=== PATIENT | female | born 1955 | race Caucasian/White ===

== ENCOUNTER 2023-12-22 14:41 | Outpatient (AMB) | payer MEDICARE, SELFPAY ==
--- NOTE | 2023-12-22 14:42 | A.OFFPC_ITS ---
Vital Signs 12/22/23 14:46 12/22/23 15:04 Height 5 ft 2 in Weight 195 lb BMI 35.7 BP 150/78 H 132/68 Blood Pressure Location Lt brachial Rt brachial Position Sitting Sitting Pulse 68 Pulse Source Pulse Oximeter Temp 98.7 F Temp Source Oral Pulse Oximetry (%) 96 Oxygen Delivery Method Room Air Intake Visit Reasons: [facility] Intake Note: patient here for new patient visit. Clearing Supervisor Required: No Patient : No Allergies Penicillins Allergy (Severe, Verified 12/22/23 14:53) Anaphylaxis ibuprofen Allergy (Intermediate, Verified 12/22/23 14:53) Rash Tobacco use date assessed: 12/22/23 Fall risk assessment: No Falls in past year Last assessed Fall Risk: 12/22/23 Dental Screening Dental Screen Date: 12/22/23 Did you have a dental visit in the last 12 months?: No Did you have a dental problem in the last 6 months where you did not have access to dental care?: No Was dental information given to patient?: Patient has dentist HPI HPI Comments History of Present Illness Details This is a 68-year-old female with a past medical history of hypertension, obesity and depression with anxiety presenting to [facility]. She transferred care from Monica Oden NP. She had 1 interim visit at [facility]. Hypertension-Taking amlodipine 5 mg since 2020. She had an episode of hypertensive urgency earlier this year, and she called the paramedics to her house. Her systolic blood pressure was 200. She declined going to the ER. Her blood pressure today is 132/68. She denies side effects on the medication. Nonsmoker. Depression with anxiety-treated with Zoloft 200 mg for approximately 5 years. The medication works well. She has therapist and medication prescriber at the [facility]. She takes Clonazepam 0.5 mg daily as needed. She gets 15 tablets per month. Obesity-she is trying to lose weight. She eats organic and has lots of fiber. She says she needs to exercise more. She would like a referral for a skin exam. She has not noticed any new lesions, but she has a family history of melanoma. Referred to [facility]. [facility] Medical History (Updated 12/22/23 @ 15:42 by BAILEY Orellana) Screening for cardiovascular condition Severe obesity with body mass index (BMI) of 35.0 to 39.9 with serious comorbidity Hypertension, essential Depression with anxiety Surgical History (Updated 12/22/23 @ 15:34 by BAILEY Orellana) Hx of myomectomy H/O toe surgery Family History (Updated 12/22/23 @ 15:35 by BAILEY Orellana) Brother Alcohol abuse Substance abuse FH: mental illness Melanoma Sister Melanoma Social History Housing: House Patient Tobacco Use Status: Never used Tobacco e-Cigarette/Vaping Use: Never Used Second Hand Smoke Exposure: No service: No Current occupational status: retired Cognitive needs: No Hearing needs: No Vision needs: Yes Questionnaire PHQ-9 Over the last 2 weeks, how often have you been bothered by any of the following problems? 1. Little interest or pleasure in doing things: not at all 2. Feeling down, depressed, or hopeless: not at all 3. Trouble falling or staying asleep, or sleeping too much: not at all 4. Feeling tired or having little energy: not at all 5. Poor appetite or overeating: not at all 6. Feeling bad about yourself - or that you are a failure or have let yourself or your family down: not at all 7. Trouble concentrating on things, such as reading the newspaper or watching television: not at all 8. Moving or speaking so slowly that other people could have noticed. Or the opposite - being so fidgety or restless that you have been moving around a lot more than usual: not at all 9. Thoughts that you would be better off or of hurting yourself in some way: not at all Total score: 0 Depression Screening Interpretation: Negative Depression Screening Done: Yes 18210 - PHQ-9 Billing: Yes Source: Developed by Drs. Marcellus Michel, Tri Randall, Peter Cortez and colleagues, with an educational castro from [employer]. Thrive Questionnaire Date Thrive assessed: 12/22/23 I am a: Patient What is your living situation today?: I have a steady place to live Within the past 12 months, did the food you bought not last and you didn't have the money to get more?: Never true Within the past 12 months, did you worry whether your food would run out before you got money to buy more?: Never true Do you have trouble paying for medicines?: No Do you have trouble getting transportation to medical appointments?: No Do you have trouble paying your heating and electricity bill?: No Do you have trouble taking care of your child, family member or friend?: No Do you have trouble with day-to-day activities such as bathing, preparing meals, shopping, managing finances, etc.?: No Are you currently unemployed and looking for a job?: No Are you interested in more education?: No Please select the resources that you would like help with: None Currently or been in a relationship where the following occur: no concerns reported THRIVE Score: 0 AUDIT C Alcohol Use Questionnaire (AUDIT-C) 1. How often do you have a drink containing alcohol?: Never 3. How often do you have six or more drinks on one occasion?: Never Total Score: 0 JESSICA-7 AMB Questionnaire JESSICA-7 Date JESSICA - 7 assessed: 12/22/23 Feeling nervous, anxious, or on edge: 1 = Several days Not being able to stop or control worryin = Not at all Worrying too much about different things: 0 = Not at all Trouble relaxin = Not at all Being so restless that it is hard to sit still: 0 = Not at all Becoming easily annoyed or irritable: 0 = Not at all Feeling afraid as if something awful might happen: 0 = Not at all Total JESSICA-7 score (0-4 normal; 5-9 mild; 10-14 moderate; 15-21 severe): 1 Source: Developed by Drs. Marcellus Michel, Tir Randall, Peter Cortez and colleagues, with an educational castro from [employer]. JESSICA-7 Assessment Billing JESSICA-7 Assessment Tool: JESSICA-7 Assessment 10801 Review of Systems Const Details: Constitutional: No unexplained weight loss, fever, chills, fatigue or night sweats. Eyes: No vision changes Respiratory: No shortness of breath Cardiovascular: No chest pain Neurologic: No headache, dizziness, syncope Psychiatric: No SI/HI. Physical exam (Primary Care) Vital Signs: Last Vital Signs Temp 98.7 F 12/22/23 14:46 Pulse 68 12/22/23 14:46 BP 132/68 12/22/23 15:04 Pulse Ox 96 12/22/23 14:46 Oxygen Delivery Method Room Air 12/22/23 14:46 BMI result Body Mass Index 35.7 Tobacco/Smoking Status: Tobacco use Status Tobacco use date assessed 12/22/23 12/22/23 15:01 Patient Tobacco Use Status Never used Tobacco 12/22/23 15:01 e-Cigarette/Vaping Use Never Used 12/22/23 15:01 PHQ-9: PHQ-9 Score PHQ-9: Total score 0 12/22/23 15:48 Depression Screening Interpretation: Negative Thrive Assessment: Date of Thrive Assessment Date Thrive assessed 12/22/23 12/22/23 15:48 Currently or been in a relationship where the following occur: no concerns reported Const Other: Constitutional: Alert, in no distress. Head: Normocephalic. Eyes: Pupils are equal, round and reactive to light.. Neck: Supple, Full range of motion. No lymphadenopathy. No palpable thyroid masses. Respiratory: Clear to auscultation. Cardiovascular: S1 S2 regular. No murmurs. Extremities: Warm and well perfused. No clubbing, cyanosis or edema. Assessment and Plan Assessment & Plan (1) Depression with anxiety: Code(s): F41.8 - Other specified anxiety disorders Plan: Stable. Continue management per psych. She gets her refills through her med prescriber. (2) Hypertension, essential: Code(s): I10 - Essential (primary) hypertension Plan: Controlled. Continue amlodipine 5 mg. Patient says she did not need a refill today. Recommended low-sodium diet, avoidance of caffeine and weight loss. (3) Severe obesity with body mass index (BMI) of 35.0 to 39.9 with serious comorbidity: Code(s): E66.01 - Morbid (severe) obesity due to excess calories Plan: Check TSH, lipid profile and fasting glucose. Discussed lifestyle mo difications. Also reviewed availability of weight loss management program at [facility], power and recovery superintendent referral and medications to promote weight loss. Declines further interventions at this time. Plan Patient defers health maintenance topics today. She will schedule a physical exam. Orders: Orders TSH reflex Free T4 Today E66.01 - Morbid (severe) obesity due to excess calories, E66.9 - Obesity, unspecified, F41.8 - Other specified anxiety disorders, I10 - Essential (primary) hypertension, Z13.6 - Encounter for screening for cardiovascular disorders Comprehensive Met. Panel Today E66.01 - Morbid (severe) obesity due to excess calories, F41.8 - Other specified anxiety disorders, I10 - Essential (primary) hypertension, Z13.6 - Encounter for screening for cardiovascular disorders Lipid Panel Today E66.01 - Morbid (severe) obesity due to excess calories, F41.8 - Other specified anxiety disorders, I10 - Essential (primary) hypertension, Z13.6 - Encounter for screening for cardiovascular disorders Complete Blood Count Man Dif Today E66.01 - Morbid (severe) obesity due to excess calories, F41.8 - Other specified anxiety disorders, I10 - Essential (primary) hypertension, Z13.6 - Encounter for screening for cardiovascular disorders Referrals Dermatology Referral Z12.83 - Encounter for screening for malignant neoplasm of skin Review Patient declined Mammogram: 12/22/23 Declined Pap Smear: 12/22/23 Patient declined Colonoscopy: 12/22/23 Patient declined Colon Cancer Screen Lab: 12/22/23 Coding Level of Care Code New Pt Level 4 (46499) Complex EM visit Add On G2211 Diagnoses Depression with anxiety F41.8 Hypertension, essential I10 Severe obesity with body mass index (BMI) of 35.0 to 39.9 with serious comorbidity E66.01 Additional Codes JESSICA-7 Assessment Billing - JESSICA-7 Assessment Tool: JESSICA-7 Assessment 06517 ([id number])
[2023-12-22 14:46] VITALS: BP 150/78; PULSE 68; TEMP 37.1; O2SAT 96; BMI 35.7
[2023-12-22 15:04] VITALS: BP 132/68
== END 2023-12-22 15:41 | disposition home or self-care (01) ==
PROVIDERS: PCP Physician Assistant Medical; Visit Provider Physician Assistant Medical
DX: I10 Essential (primary) hypertension (principal); F41.8 Other specified anxiety disorders; E66.01 Morbid (severe) obesity due to excess calories; Z68.35 Body mass index [BMI] 35.0-35.9, adult
CPT/HCPCS: 99204; G2211

== ENCOUNTER 2024-06-16 08:32 | Outpatient (AMB) | payer MEDICARE, SELFPAY ==
--- NOTE | 2024-06-16 08:38 | MHC.PC.OV ---
Vital Signs 06/16/24 08:40 06/16/24 09:59 Height 4 ft 2 in 5 ft 2 in Weight 200 lb 4 oz 200 lb 4 oz BMI 56.3 36.6 BP 128/78 Blood Pressure Location Lt brachial Pulse 73 Pulse Source Pulse Oximeter Pulse Oximetry (%) 95 Oxygen Delivery Method Room Air Intake Visit Reasons: medicare wellness visit Intake Note: Medical wellness visit. Needs refill on Amdlopine. Statistical Clerk Advertising Required: No Allergies Penicillins Allergy (Severe, Verified 06/16/24 08:38) Anaphylaxis ibuprofen Allergy (Intermediate, Verified 06/16/24 08:38) Rash Tobacco use date assessed: 06/16/24 Fall risk assessment: 1 Fall in past year Last assessed Fall Risk: 06/16/24 Dental Screening Dental Screen Date: 12/22/23 HPI HPI Comments History of Present Illness Details This is a 68-year-old female with a past medical history of hypertension, obesity and depression with anxiety presenting for follow up. Patient was informed and verbally consented to the use of an ambient scribe for clinic note documentation during this visit. Hypertension-Taking amlodipine 5 mg since 2020.She denies side effects on the medication. Former onsmoker. The patient expresses interest in a coronary artery calcium screening due to a significant family history of cardiac disease, including premature myocardial infarction in two brothers, one of whom was under age 50. Depression with anxiety-treated with Zoloft 200 mg. The medication works well. She has therapist and medication prescriber at the [facility]. She takes Clonazepam 0.5 mg daily as needed. She gets 15 tablets per month. Obesity-she is trying to lose weight. She eats organic and has lots of fiber. She says she needs to exercise more. She would like a referral to a polisher sand in [place] for skin exam. She has an unhealing lesion on her right upper shoulder for 4-5 years. She picks at it. She has a family history of basal cell carcinoma. The patient was mailed a Cologuard test by her insurance, and she will complete it. She declines colonoscopy. She declines flu vaccine and Prevnar 20 today. States she will get the pneumonia vaccine from the pharmacy. She plans to pursue Shingrix vaccine with her pharmacy. She declines COVID-19 vaccination. Declines RSV vaccination. Patient says tetanus vaccine is up-to-date within the past 10 years. She declines referral for mammogram, bone density exam and gynecological exam. We discussed cancer, and she continues to decline. She will have fasting blood work completed. ROS: - Cardiovascular: Denies chest pain, palpitations, episodes of passing out. - Respiratory: Reports no frequent coughing or trouble breathing. - Gastrointestinal: Denies blood in stools, vomiting. - Genitourinary: Denies vaginal bleeding. - Musculoskeletal: Denies recent bone fractures. - Skin: Reports persistent skin lesion - Neurological: Denies frequent nosebleeds, vision changes, dizziness. - Psychological: Denies recent hospital or ER visits for psychiatric concerns; ongoing management with Zoloft and Lorazepam. PE: Constitutional: Alert, in no distress. Head: Normocephalic. Eyes: Pupils are equal, round and reactive to light. Ear, Nose and Throat: Canals clear. TMs normal. Normal nasal mucosa. No nasal discharge. No oral lesions. Neck: Supple, Full range of motion. No lymphadenopathy. No palpable thyroid masses. Respiratory: Clear to auscultation. Cardiovascular: S1 S2 regular. No murmurs. Gastrointestinal: Abdomen soft, non-tender, non-distended. Normal bowel sounds. No palpable masses. Skin: 1/2 cm sore with hemorrhagic crust on right upper back Extremities: Warm and well perfused. No clubbing, cyanosis or edema. 3+ peripheral pulses bilaterally. Psychiatric: Normal mood and affect [facility] Medical History (Updated 06/16/24 @ 10:00 by BAILEY Orellana) Vaccine counseling Neoplasm of skin Family history of early CAD Screening for cardiovascular condition Severe obesity with body mass index (BMI) of 35.0 to 39.9 with serious comorbidity Hypertension, essential Depression with anxiety Surgical History Hx of myomectomy H/O toe surgery Family History Brother Alcohol abuse Substance abuse FH: mental illness Melanoma Sister Melanoma Social History (Updated 06/16/24 @ 08:40 by Mary Jane Carmen CMA) Housing: House Alcohol intake: former Patient Tobacco Use Status: Former Tobacco user Years Smoked: 7 e-Cigarette/Vaping Use: Never Used Second Hand Smoke Exposure: No service: No Current occupational status: retired Cognitive needs: No Hearing needs: No Vision needs: Yes Questionnaire Thrive Questionnaire Date Thrive assessed: 12/22/23 JESSICA-7 AMB Questionnaire JESSICA-7 Date JESSICA - 7 assessed: 12/22/23 Source: Developed by Drs. Marcellus Michel, Tri Randall, Peter Cortez and colleagues, with an educational castro from [employer]. Physical exam (Primary Care) Vital Signs: Last Vital Signs Pulse 73 06/16/24 08:40 BP 128/78 06/16/24 08:40 Pulse Ox 95 06/16/24 08:40 Oxygen Delivery Method Room Air 06/16/24 08:40 BMI result Body Mass Index 56.3 Tobacco/Smoking Status: Tobacco use Status Tobacco use date assessed 06/16/24 06/16/24 08:42 Patient Tobacco Use Status Former Tobacco user 06/16/24 08:42 e-Cigarette/Vaping Use Never Used 06/16/24 08:42 Thrive Assessment: Date of Thrive Assessment Date Thrive assessed 12/22/23 06/16/24 08:42 Office Procedures EKG Details: EKG shows normal sinus rhythm with a ventricular rate of 73 beats per minute [id number], Complete Coding Level of Care Code Est Pt Level 4 (10304) Complex EM visit Add On G2211 Diagnoses Hypertension, essential I10 Neoplasm of skin D49.2 Family history of early CAD Z82.49 Depression with anxiety F41.8 Vaccine counseling Z71.85 CPT Codes EKG - CPT: 95258-[id number], Complete ([id number]) Assessment & Plan Assessment & Plan (1) Hypertension, essential: Code(s): I10 - Essential (primary) hypertension Category: Medical (2) Neoplasm of skin: Code(s): D49.2 - Neoplasm of unspecified behavior of bone, soft tissue, and skin Category: Medical (3) Family history of early CAD: Code(s): Z82.49 - Family history of ischemic heart disease and other diseases of the circulatory system Category: Medical (4) Depression with anxiety: Code(s): F41.8 - Other specified anxiety disorders Category: Medical (5) Vaccine counseling: Code(s): Z71.85 - Encounter for immunization safety counseling Category: Medical Plan 1. Essential Hypertension: Blood pressure management is stable with amlodipine. Continue with current medication dosage and adherence. Baseline EKG shows normal sinus rhythm. 2. Family History of Coronary Artery Disease: Ordered a coronary artery calcium score through [facility] for assessing the risk of coronary artery disease. Recommended the patient check insurance coverage. 3. Depression with anxiety: No changes to current treatment with Zoloft. Continue follow-up with psychiatry as scheduled. 4. Skin neoplasm: Referral to [facility] for further evaluation and potential biopsy of a persistent skin lesion. 5. Preventative Screenings: Recommended completion of Cologuard test for colorectal cancer screening. See HPI. 6. Immunizations: Advised to consider the Shingrix and Prevnar 20 vaccines from a pharmacy, taking into consideration social plans and potential minor side effects. Patient declines influenza vaccination. Follow up in 6 months. Orders: Orders AMB EKG-In Office Today I10 - Essential (primary) hypertension, Z82.49 - Family history of ischemic heart disease and other diseases of the circulatory system CT Coronary Calcium Score Today I10 - Essential (primary) hypertension, Z82.49 - Family history of ischemic heart disease and other diseases of the circulatory system Referrals Dermatology Referral D49.2 - Neoplasm of unspecified behavior of bone, soft tissue, and skin Medications: New amlodipine 5 mg PO DAILY 90 tabs 3RF
[2024-06-16 08:40] VITALS: BP 128/78; PULSE 73; O2SAT 95; BMI 56.3
[2024-06-16 09:59] VITALS: BMI 36.6
== END 2024-06-16 09:29 | disposition home or self-care (01) ==
PROVIDERS: PCP Physician Assistant Medical; Visit Provider Physician Assistant Medical
DX: I10 Essential (primary) hypertension (principal); D49.2 Neoplasm of unspecified behavior of bone, soft tissue, and skin; Z82.49 Family history of ischemic heart disease and other diseases of the circulatory system; F41.8 Other specified anxiety disorders; Z71.85 Encounter for immunization safety counseling

== ENCOUNTER → 2024-06-16 08:32 | Outpatient (BNVA) | payer MEDICARE, SELFPAY | PROVIDERS: PCP Physician Assistant Medical; Visit Provider Physician Assistant Medical | DX: I10 Essential (primary) hypertension (principal); F41.8 Other specified anxiety disorders; D49.2 Neoplasm of unspecified behavior of bone, soft tissue, and skin; Z82.49 Family history of ischemic heart disease and other diseases of the circulatory system; Z71.85 Encounter for immunization safety counseling; Z79.899 Other long term (current) drug therapy | CPT/HCPCS: 93005; 99212 ==

== ENCOUNTER 2025-01-10 12:32 | Outpatient (REF) | payer MEDICARE, SELFPAY ==
[2025-01-10 15:20] LABS: MANUAL DIFF FLAG NO
[2025-01-10 15:30] LABS: Hematocrit 39.5 % (37.0-47.0); Hemoglobin 13.5 g/dl (12.0-16.0); Imm Gran Abs Auto 0.05 X10*3/uL (0.00-0.03); Imm Gran Pct Auto 0.7 % (0.0-0.4); Lymphocytes Absolute Auto 1.3 X10*3/uL (1.2-4.9); Mean Corpuscular HGB Conc 34.2 g/dl (31.0-35.0); Mean Corpuscular Hemoglobin 33.1 pg (27.0-33.0); Mean Corpuscular Volume 96.8 fL (80.0-98.0); NRBC Abs Auto 0.000 X10*3/uL (0.0-0.012); NRBC Pct Auto 0.0 /100WBC (0.0-0.2); Platelet Count 140 X10*3/uL (160-400); Red Blood Count 4.08 X10*6/uL (4.20-5.50); White Blood Count 7.3 X10*3/uL (4.8-10.8)
[2025-01-10 15:57] LABS: Alanine Aminotransferase 31 U/L (0-31); Albumin Level 4.4 g/dL (3.5-5.0); Alkaline Phosphatase 60 U/L (39-117); Anion Gap 12 (12-20); Aspartate Amino Transferase 29 U/L (5-31); Blood Urea Nitrogen 14 mg/dL (9-16); Calcium 8.7 mg/dL (8.4-10.2); Carbon Dioxide 25 mmol/L (22-29); Chloride 104 mmol/L (96-108); Cholesterol 225 mg/dL (<200); Estimated Glomerular Filt Rate 56; HDL Cholesterol 47 mg/dL (>40); Iron 112 mcg/dL (30-160); Percent Iron Saturation 45 % (15-50); Potassium 3.8 mmol/L (3.3-5.1); Sodium 137 mmol/L (135-145); Total Iron Binding Capacity 251 mcg/dL (228-428); Total Protein 6.9 g/dL (6.5-8.0); Triglycerides 270 mg/dL (<150); Unsaturated Iron Binding 139 ug/dL
[2025-01-10 15:59] LABS: Ferritin 413 ng/mL (10-250)
[2025-01-10 16:17] LABS: Folate 12.5 ng/mL (> or = 4.0); Vitamin B12 589 pg/mL (200-900)
== END 2025-01-10 12:33 | disposition home or self-care (01) ==
LOC: HO.WFDLDS 12:32
PROVIDERS: Visit Provider Physician Assistant Medical
DX: Z13.6 Encounter for screening for cardiovascular disorders (principal); F41.8 Other specified anxiety disorders; I10 Essential (primary) hypertension; E66.01 Morbid (severe) obesity due to excess calories; D64.9 Anemia, unspecified; E78.5 Hyperlipidemia, unspecified; Z82.49 Family history of ischemic heart disease and other diseases of the circulatory system
CPT/HCPCS: 36415; 80053; 80061; 82607; 82728; 82746; 83540; 84443; 85025

== ENCOUNTER 2025-01-12 14:20 | Outpatient (AMB) | payer MEDICARE, SELFPAY ==
--- NOTE | 2025-01-12 13:44 | MHC.OFFVIS ---
Intake Visit Reasons: Med review and labs Allergies Penicillins Allergy (Severe, Verified 06/16/24 08:38) Anaphylaxis ibuprofen Allergy (Intermediate, Verified 06/16/24 08:38) Rash Medication List - Last Reconciled 01/12/25 by BAILEY Orellana amlodipine 5 mg PO DAILY clonazepam 0.5 mg PO DAILY rosuvastatin 10 mg PO BEDTIME sertraline 200 mg PO DAILY HPI Comments Details: This is a 68-year-old female with a past medical history of hypertension, obesity and depression with anxiety presenting for follow up. Hypertension-Taking amlodipine 5 mg since 2020.She denies side effects on the medication. Former smoker. She monitors her blood pressure at home, and the readings are less than 130/80. She expressed interest in a coronary artery calcium screening due to a significant family history of cardiac disease, including premature myocardial infarction in two brothers, one of whom was under age 50. She did not end up getting it done, and she is unsure she wants to have it done. We reviewed that her ASCVD risk score is 9.2%, she has dyslipidemia, and the recommendation is to start a statin. She is fine with this. She has CKD stage IIIA. She does not take [id number] NSAIDs. Depression with anxiety-treated with Zoloft 200 mg. The medication works well. She has therapist and medication prescriber at the [facility]. She takes Clonazepam 0.5 mg daily as needed. She gets 15 tablets per month. Obesity-she is trying to lose weight. She eats organic and has lots of fiber. She says she needs to exercise more. The patient says she drank heavily for 40 years. She no longer drinks any alcohol. Her ferritin level is elevated , and her platelet count is mildly decreased. She does not take iron supplements. Iron is normal. She was sick recently with a viral infection that caused congestion and diarrhea. Regarding the elevated ferritin-her brother has hemochromatosis. Her fasting glucose level is mildly impaired at 109. ROS: Constitutional: No unexplained weight loss, fever, chills, fatigue or night sweats. Respiratory: No shortness of breath, cough or sputum production. Cardiovascular: No chest pain, chest pressure or chest discomfort. No palpitations or pedal edema. Gastrointestinal: No anorexia, nausea, vomiting or diarrhea. No abdominal pain or blood in stool. Neurologic: No headache, dizziness, syncope PFSH Medical History (Updated 01/12/25 @ 14:14 by BAILEY Orellana) Hyperlipidemia CKD (chronic kidney disease) stage 3, GFR 30-59 ml/min IFG (impaired fasting glucose) Thrombocytopenia Elevated ferritin Vaccine counseling Neoplasm of skin Family history of early CAD Screening for cardiovascular condition Severe obesity with body mass index (BMI) of 35.0 to 39.9 with serious comorbidity Hypertension, essential Depression with anxiety Surgical History Hx of myomectomy H/O toe surgery Family History Brother Alcohol abuse Substance abuse FH: mental illness Melanoma Sister Melanoma Social History (Updated 06/16/24 @ 08:40 by Mary Jane Carmen CMA) Housing: House Alcohol intake: former Patient Tobacco Use Status: Former Tobacco user Years Smoked: 7 e-Cigarette/Vaping Use: Never Used Second Hand Smoke Exposure: No service: No Current occupational status: retired Cognitive needs: No Hearing needs: No Vision needs: Yes Telehealth Telehealth Telehealth Platform: Telephone Location of provider rendering services: practice address Location of patient: address on file Patient Identification confirmed using: Name, : Yes Telehealth method: voice only Patient verbally consented to treatment: Yes Patient verbally consented to billing insurance company: Yes Patient informed of any privacy concerns related to visit: Yes Minutes spent on Phone/Video with Pt.: 18 Assessment & Plan Assessment & Plan (1) Hypertension, essential: Code(s): I10 - Essential (primary) hypertension Category: Medical Plan: Controlled. Continue amlodipine 5 mg daily. (2) Depression with anxiety: Code(s): F41.8 - Other specified anxiety disorders Category: Medical Plan: Controlled. Continue current medications. Followed by behavioral health. (3) Elevated ferritin: Code(s): R79.89 - Other specified abnormal findings of blood chemistry Category: Medical Plan: Differential includes liver disease related to prior alcoholism, hemochromatosis heterozygous or homozygous carrier, elevation due to recent viral infection. Repeat in 8 weeks and check hemochromatosis test. (4) Thrombocytopenia: Code(s): D69.6 - Thrombocytopenia, unspecified Category: Medical Plan: This may be related to liver disease possibly due to prior alcohol use or related to recent viral infection. Repeat in 8 weeks. If this remains low check liver ultrasound. (5) IFG (impaired fasting glucose): Code(s): R73.01 - Impaired fasting glucose Category: Medical Plan: Recommended low carbohydrate and low sugar diet. Check hemoglobin A1c. (6) Hyperlipidemia: Code(s): E78.5 - Hyperlipidemia, unspecified Category: Medical Plan: Lifestyle modifications reviewed. Start rosuvastatin 10 mg daily. Side effects reviewed. Check LFTs and lipid profile in 8 weeks. (7) CKD (chronic kidney disease) stage 3, GFR 30-59 ml/min: Code(s): N18.30 - Chronic kidney disease, stage 3 unspecified Category: Medical Qualifiers: Chronic kidney disease stage 3 subtype: stage 3a (GFR 45-59) Qualified Code(s): N18.31 - Chronic kidney disease, stage 3a Plan: Avoid nephrotoxic medications. Stay well hydrated. Hypertension is well-controlled. Plan Follow up in 9 weeks to review results. Orders: Orders Hemoglobin A1c Today D69.6 - Thrombocytopenia, unspecified, E78.5 - Hyperlipidemia, unspecified, N18.30 - Chronic kidney disease, stage 3 unspecified, R73.01 - Impaired fasting glucose, R79.89 - Other specified abnormal findings of blood chemistry DNA Analysis Hemochromatosis Today D69.6 - Thrombocytopenia, unspecified, E78.5 - Hyperlipidemia, unspecified, N18.30 - Chronic kidney disease, stage 3 unspecified, R73.01 - Impaired fasting glucose, R79.89 - Other specified abnormal findings of blood chemistry Complete Blood Count Auto Diff Today D69.6 - Thrombocytopenia, unspecified, E78.5 - Hyperlipidemia, unspecified, N18.30 - Chronic kidney disease, stage 3 unspecified, R73.01 - Impaired fasting glucose, R79.89 - Other specified abnormal findings of blood chemistry Aspartate Amino Transferase Today D69.6 - Thrombocytopenia, unspecified, E78.5 - Hyperlipidemia, unspecified, N18.30 - Chronic kidney disease, stage 3 unspecified, R73.01 - Impaired fasting glucose, R79.89 - Other specified abnormal findings of blood chemistry Ferritin Today D64.9 - Anemia, unspecified Pathologist Review - CBC Today D69.6 - Thrombocytopenia, unspecified, E78.5 - Hyperlipidemia, unspecified, N18.30 - Chronic kidney disease, stage 3 unspecified, R73.01 - Impaired fasting glucose, R79.89 - Other specified abnormal findings of blood chemistry Alanine Aminotransferase Today D69.6 - Thrombocytopenia, unspecified, E78.5 - Hyperlipidemia, unspecified, N18.30 - Chronic kidney disease, stage 3 unspecified, R73.01 - Impaired fasting glucose, R79.89 - Other specified abnormal findings of blood chemistry Lipid Panel Today D69.6 - Thrombocytopenia, unspecified, E78.5 - Hyperlipidemia, unspecified, N18.30 - Chronic kidney disease, stage 3 unspecified, R73.01 - Impaired fasting glucose, R79.89 - Other specified abnormal findings of blood chemistry Medications: New rosuvastatin 10 mg PO BEDTIME 90 tabs 0RF Refilled amlodipine 5 mg PO DAILY 90 tabs 3RF Coding Level of Care Code Tele Est Pt Level 4 (75064) Complex EM visit Add On G2211 Diagnoses Hypertension, essential I10 Depression with anxiety F41.8 Elevated ferritin R79.89 Thrombocytopenia D69.6 IFG (impaired fasting glucose) R73.01 Hyperlipidemia E78.5 Stage 3a chronic kidney disease N18.31 Chronic kidney disease stage 3 subtype: stage 3a (GFR 45-59)
== END 2025-01-12 14:21 | disposition home or self-care (01) ==
LOC: HO.HMCFM 14:20
PROVIDERS: PCP Physician Assistant Medical; Visit Provider Physician Assistant Medical
DX: I12.9 Hypertensive chronic kidney disease with stage 1 through stage 4 chronic kidney disease, or unspecified chronic kidney disease (principal); N18.31 Chronic kidney disease, stage 3a; F41.8 Other specified anxiety disorders; R79.89 Other specified abnormal findings of blood chemistry; D69.6 Thrombocytopenia, unspecified; R73.01 Impaired fasting glucose; E78.5 Hyperlipidemia, unspecified

== ENCOUNTER 2025-04-04 09:20 | Outpatient (REF) | payer MEDICARE, SELFPAY ==
[2025-04-04 13:36] LABS: MANUAL DIFF FLAG NO
[2025-04-04 13:42] LABS: Hematocrit 38.3 % (37.0-47.0); Hemoglobin 13.1 g/dl (12.0-16.0); Imm Gran Abs Auto 0.03 X10*3/uL (0.00-0.03); Imm Gran Pct Auto 0.5 % (0.0-0.4); Lymphocytes Absolute Auto 1.8 X10*3/uL (1.2-4.9); Mean Corpuscular HGB Conc 34.2 g/dl (31.0-35.0); Mean Corpuscular Hemoglobin 32.3 pg (27.0-33.0); Mean Corpuscular Volume 94.3 fL (80.0-98.0); NRBC Abs Auto 0.000 X10*3/uL (0.0-0.012); NRBC Pct Auto 0.0 /100WBC (0.0-0.2); Platelet Count 159 X10*3/uL (160-400); Red Blood Count 4.06 X10*6/uL (4.20-5.50); White Blood Count 6.3 X10*3/uL (4.8-10.8)
[2025-04-04 15:10] LABS: Alanine Aminotransferase 24 U/L (0-31); Aspartate Amino Transferase 25 U/L (5-31); Cholesterol 142 mg/dL (<200); Ferritin 445 ng/mL (10-250); Triglycerides 115 mg/dL (<150)
[2025-04-04 15:26] LABS: HDL Cholesterol 47 mg/dL (>40)
== END 2025-04-04 09:21 | disposition home or self-care (01) ==
LOC: HO.HMGCLDS 09:20
PROVIDERS: PCP Physician Assistant Medical; Visit Provider Physician Assistant Medical
DX: R79.89 Other specified abnormal findings of blood chemistry (principal); D69.6 Thrombocytopenia, unspecified; R73.01 Impaired fasting glucose; N18.30 Chronic kidney disease, stage 3 unspecified; E78.5 Hyperlipidemia, unspecified; D64.9 Anemia, unspecified
CPT/HCPCS: 80061; 81256; 82728; 83036; 84450; 84460; 85025